=== PATIENT | male | born 1970 | race Caucasian/White ===

== ENCOUNTER 2018-02-22 20:23 | Emergency (ER) | payer OTHER ==
[2018-02-22 20:41] VITALS: BP 162/90
[2018-02-22] MEDS ORDERED: Amoxicillin/Clavulanate TAB* 875 MG PO ONE (20:49)
[2018-02-22] MEDS ORDERED: Albuterol HFA INHALER* 8 gm MDI INH ONE (20:50)
--- NOTE | 2018-02-22 21:23 | UC ---
Respiratory Complaint HPI - HPI Summary HPI Summary: 10 days of worsening sinus pain, nasal and sinus congestion, and fever - History of Current Complaint Chief Complaint: UCRespiratory Stated Complaint: SINUS PAIN,COUGH Time Seen by Provider: 02/22/18 20:34 Hx Obtained From: Patient Onset/Duration: Gradual Onset, Lasting Days - 10, Still Present, Worse Since - past few days Timing: Constant Pain Intensity: 3 Pain Scale Used: 0-10 Numeric Alleviating Factors: OTC Meds Associated Signs And Symptoms: Positive: Fever, Chills, Nasal Congestion, Sinus Discomfort - Allergies/Home Medications Allergies/Adverse Reactions: Allergies Allergy/AdvReac Type Severity Reaction Status Date / Time cephalexin Allergy Vomiting Verified 02/22/18 20:42 Home Medications: Home Medications Levothyroxine TAB* [Synthroid 100 MCG TAB*] 200 mcg PO DAILY 02/22/18 [History Confirmed 02/22/18] PMH/Surg Hx/FS Hx/Imm Hx Previously Healthy: No Endocrine History: Hypothyroidism Cardiovascular History: Hypertension - "white coat hypertension" - Surgical History Surgical History: Yes Surgery Procedure, Year, and Place: (right) KNEE SURGERY - Family History Known Family History: Positive: Cardiac Disease, Hypertension, Diabetes - Social History Occupation: Employed Full-time Lives: With Family Alcohol Use: None Substance Use Type: None Smoking Status (MU): Heavy Every Day Tobacco Smoker Type: Cigarettes Amount Used/How Often: 1/2 PPD Have You Smoked in the Last Year: Yes Household Exposure Type: Cigarettes Cessation Counseling: Counseled 3+Min - 10 Min Review of Systems Constitutional: Fever, Chills Skin: Negative Eyes: Negative ENT: Nasal Discharge, Sinus Congestion, Sinus Pain/Tenderness Respiratory: Cough Cardiovascular: Negative Gastrointestinal: Negative Genitourinary: Negative Motor: Negative Neurovascular: Negative Musculoskeletal: Negative Neurological: Negative Psychological: Negative Is Patient Immunocompromised?: No All Other Systems Reviewed And Are Negative: Yes Physical Exam Triage Information Reviewed: Yes Appearance: Well-Nourished, Ill-Appearing - mild, Pain Distress - mild Vital Signs: Initial Vital Signs Temp 101.2 F 02/22/18 20:34 Pulse 106 02/22/18 20:34 Resp 16 02/22/18 20:34 BP 162/90 02/22/18 20:34 Pulse Ox 98 02/22/18 20:34 Vital Signs Reviewed: Yes Eye Exam: Normal Eyes: Positive: Conjunctiva Clear ENT Exam: Normal ENT: Positive: Normal ENT inspection, Hearing grossly normal, Pharynx normal, Nasal congestion, TMs normal, Sinus tenderness, Uvula midline. Negative: Trismus, Muffled voice, Hoarse voice, Dental tenderness Dental Exam: Normal Neck exam: Normal Neck: Positive: Supple, Nontender, No Lymphadenopathy Respiratory Exam: Normal Respiratory: Positive: Chest non-tender, No respiratory distress, No accessory muscle use, Wheezing Cardiovascular Exam: Normal Cardiovascular: Positive: No Murmur, Pulses Normal, Brisk Capillary Refill, Tachycardia Musculoskeletal Exam: Normal Musculoskeletal: Positive: Strength Intact, ROM Intact, No Edema Neurological Exam: Normal Neurological: Positive: Alert Psychological Exam: Normal Skin Exam: Normal UC Diagnostic Evaluation - Laboratory O2 Sat by Pulse Oximetry: 98 Respiratory Course/Dx - Course Course Of Treatment: albuterol, aerochamber, augmentin, flonase, increase fluids , tylenol, ibuprofen for pain, follow with pcp - Differential Dx/Diagnosis Provider Diagnoses: acute rhinosinusitis, nicotine dependant, "white coat" Hypertension Discharge - Sign-Out/Discharge Documenting (check all that apply): Discharge/Admit/Transfer - Discharge Plan Condition: Stable Disposition: HOME Prescriptions: Amoxicillin/Clavulanate TAB* [Augmentin TAB 875*] 875 mg PO BID #19 tab Fluticasone NASAL SPRAY 50MCG* [Flonase NASAL SPRAY 50MCG*] 2 spray BOTH NARES DAILY #1 btl Patient Education Materials: How to Stop Smoking (ED), Sinusitis (ED), Hypertension (ED), How to Use a Metered-Dose Inhaler and a Spacer (ED), How to Use Nasal [place] (ED) Forms: *Work Release Referrals: Romulo Brooks MD [Primary Care Provider] - 2 Weeks - Billing Disposition and Condition Condition: STABLE Disposition: Home
== END 2018-02-22 21:18 | disposition home or self-care (01) ==
LOC: UCEAST 20:23
DX: J01.90 Acute sinusitis, unspecified (principal); E03.9 Hypothyroidism, unspecified; R03.0 Elevated blood-pressure reading, without diagnosis of hypertension; F17.210 Nicotine dependence, cigarettes, uncomplicated; Z88.0 Allergy status to penicillin; Z79.899 Other long term (current) drug therapy
CPT/HCPCS: 99212; A9270-GY; G0463